=== PATIENT | female | born 1955 | race Caucasian/White ===

== ENCOUNTER 2017-08-12 10:58 | Outpatient (CLI) | payer BC | END 2017-08-12 10:59 | disposition home or self-care (01) | LOC: BICRAD 10:58 | PROVIDERS: ATTEND Chiropractor | DX: M54.2 Cervicalgia (principal); M79.671 Pain in right foot; M62.81 Muscle weakness (generalized); M47.892 Other spondylosis, cervical region; M43.12 Spondylolisthesis, cervical region; M19.071 Primary osteoarthritis, right ankle and foot; M77.51 Other enthesopathy of right foot and ankle | CPT/HCPCS: 72050 ==